=== PATIENT | male | born 1995 | race Two or more races ===

== ENCOUNTER 2024-04-02 16:17 | Emergency (ER) | payer BC, SELFPAY ==
[2024-04-02 16:20] VITALS: BMI 28.5
--- NOTE | 2024-04-02 16:26 | EKG_ITS ---
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
--- NOTE | 2024-04-02 17:12 | EDNOTE_ITS ---
Upper Respiratory Inf. RME/HPI General Chief Complaint: Flu Like Symptoms Stated Complaint: COUGH, BODYACHE, CHILLS, LIGHT HEADDED Time Seen by Provider: 04/02/24 16:50 Arrival date/time: 04/02/24 16:17 29-year-old male reports with complaints of a syncopal episode. Patient has had fevers chills body aches since this morning. Patient states that he stood from a seated position got dizzy and passed out. The syncopal episode was unwitnessed he believes that he was out for approximately 8 minutes. He denies shortness of breath chest pain nausea or vomiting abdominal pain or head injury Limitations: no limitations Related Data Allergies Allergy/AdvReac Type Severity Reaction Status Date / Time Penicillins Allergy Verified 04/02/24 16:25 Review of Systems Constitutional Constitutional: Reports chills, Reports fatigue, Reports fever(s), Denies headache(s) and Reports malaise ENT Ears, Nose, Mouth, and Throat: Reports dizziness, Denies headache(s), Denies sore throat and Reports vertigo Cardiovascular Cardiovascular: Denies chest pain at rest, Denies dyspnea and Reports syncope Respiratory Respiratory: Reports cough and Denies dyspnea Gastrointestinal Gastrointestinal: Denies nausea and Denies vomiting Musculoskeletal Musculoskeletal: Denies back pain and Reports myalgias Integumentary/Breasts Skin/Breast: Denies erythema and Denies rash Neurologic Neurologic: Denies confusion, Denies convulsions, Reports dizziness, Denies localized weakness, Denies headache(s), Reports syncope and Reports vertigo Psychiatric Psychiatric: Denies confusion and Denies depression Endocrine Endocrine: Reports fatigue Hematologic/Lymphatic Hematologic/Lymphatic: Denies easy bleeding and Denies easy bruising Past Medical History Social History SMOKING STATUS: Former smoker ED Exam General Limitations: Present no limitations General appearance: Present alert and in no apparent distress Head Head exam: Present atraumatic Eye Eye exam: Present normal appearance, PERRL and EOMI ENT ENT exam: Present normal exam, normal oropharynx and mucous membranes moist Neck Neck exam: Present normal inspection, full ROM and trachea midline Chest Chest inspection: Present normal inspection and symmetric chest wall rise Respiratory Respiratory exam: Present normal lung sounds bilaterally Cardiovascular Cardiovascular exam: Present regular rate, normal rhythm and normal heart sounds Abdominal Exam Abdominal exam: Present soft and normal bowel sounds Extremities Exam Extremities exam: Present normal inspection and full ROM Back Exam Back exam: Present normal inspection and full ROM Neurological Exam Neurological exam: Present alert, oriented X3 and CN II-XII intact Psychiatric Psychiatric exam: Present normal affect and normal mood Skin Skin exam: Present warm, dry, intact and normal color Course Quality Measures none Orders Category Date Time Status Bedside COVID-19 Antigen Test NOW Care 04/02/24 17:12 Ordered Bedside Influenza A&B Antigen Test NOW Care 04/02/24 17:12 Ordered EKG (ED ONLY) *Do not use* NOW Care 04/02/24 16:26 Completed EKG (ED Only) Stat Exams 04/02/24 16:26 Draft Upper Respiratory Infection Patient data External records reviewed:: None Clinical information provided by:: patient Social determinants that could affect healthcare access:: none Patient has the following chronic illnesses:: none How is presenting disease/condition affected by chronic disease/condition?: no chronic disease Evaluation data The following diagnostics were reviewed and interpreted by me:: lab results Lab and/or radiology exams considered but not ordered:: none Interpretation Summary: Negative for COVID positive flu Medications / Prescriptions Medications or Prescriptions considered but not ordered:: None Medication administrations:: None Consultations Consultation(s) initiated? (list below): No Diagnosis Upper Respiratory Differential Diagnosis: upper respiratory infection, viral infection and influenza Most likely diagnosis given after review of the tests above:: Influenza Admission Indicated Admission indicated?: not indicated Admission Request Was there a request for admission?: Yes Admission Attestation Admission request attestation: Discussed case with [] from Hospitalist service regarding admission. Discussed patients ED course, exam findings, labs, and radiology results. The Hospitalist [agrees,declines] to accept the patient for admission. Disposition Plan Disposition Plan: Discharge Discharge Attestation Discharge Attestation: The patient and all family members were given an opportunity to ask questions and understood the discharge instructions. Discharge instructions specifically effects, indications for sooner follow up or return to the emergency department, and the expected course of current diagnosis. Patient condition: Stable Discharge Plan Plan Patient Disposition: HOME (Self Care) Problem List Clinical Impression: Influenza Patient/Caregiver Discharge Instructions Discharge Activity: activity as tolerated Education Materials: ED Influenza (Adult) Additional Instructions: Your lab test were positive for the flu take medications as directed, hydrate well, get plenty of rest and follow up with PCP if you are not better in 5 days. The cough associated with the flu virus can sometimes last for several weeks after all other symptoms have gone, take OTC cough medication as needed for your cough Print Language: Egyptian Stand Alone Forms: [place] Award Info., Work/School Release, Patient Portal Info Letter
[2024-04-02 17:43] VITALS: BP 107/70; PULSE 101; RESP 20; TEMP 38.9
== END 2024-04-02 17:47 | disposition home or self-care (01) ==
PROVIDERS: Emergency Provider Emergency Medicine; PCP Family Medicine
DX: J11.1 Influenza due to unidentified influenza virus with other respiratory manifestations (principal); R55 Syncope and collapse
CPT/HCPCS: 87400; 87811; 93005; 99283

== ENCOUNTER 2024-12-18 15:27 | Emergency (ER) | payer BC, SELFPAY ==
[2024-12-18 15:28] VITALS: BMI 26.4
[2024-12-18 16:04] VITALS: BP 128/81; PULSE 93; RESP 16; TEMP 37.2; O2SAT 98
--- NOTE | 2024-12-18 16:21 | EDNOTE_ITS ---
<Statement entered by Zoya Pope MD - 12/19/24 14:05> As co-signing physician, I was present and available for consult prn. I concur with the plan and care as documented by the midlevel provider. ED Dental RME/HPI General Chief complaint: Dental/Oral/Throat Stated complaint: SORE THROAT, DRY COUGH, RED EYES Time Seen by Provider: 12/18/24 16:00 Source: patient Arrival date/time: 12/18/24 15:27 29-year-old male with no known medical history presents to the emergency room with a chief complaint of a sore throat and a dry cough x 2 days Mode of arrival: ambulatory Limitations: no limitations Related Data Allergies Allergy/AdvReac Type Severity Reaction Status Date / Time Penicillins Allergy Verified 12/18/24 15:31 Review of Systems Review of Systems Systems Reviewed: All systems reviewed, normal except as documented Constitutional Constitutional: Reports system reviewed and no additional complaints, except as documented, Reports chills, Denies fatigue, Denies fever(s), Reports headache(s) and Reports weakness Eyes Eyes: Reports system reviewed and no additional complaints, except as documented, Denies blurry vision and Denies change in vision ENT Ears, Nose, Mouth, and Throat: Reports system reviewed and no additional complaints, except as documented, Denies otalgia, Reports headache(s), Denies nasal congestion, Reports sore throat, Denies throat swelling and Denies vertigo Cardiovascular Cardiovascular: Reports system reviewed and no additional complaints, except as documented, Denies chest pain, Denies dyspnea and Denies dyspnea on exertion Respiratory Respiratory: Reports system reviewed and no additional complaints, except as documented, Denies chest congestion, Denies cough, Denies dyspnea, Denies dyspnea on exertion and Denies wheezing Gastrointestinal Gastrointestinal: Reports system reviewed and no additional complaints, except as documented, Denies abdominal pain, Denies cramping, Denies nausea and Denies vomiting Genitourinary Genitourinary: Reports system reviewed and no additional complaints, except as documented, Denies dysuria and Denies hematuria Musculoskeletal Musculoskeletal: Reports system reviewed and no additional complaints, except as documented and Denies back pain Integumentary/Breasts Skin/Breast: Reports system reviewed and no additional complaints, except as documented and Denies wounds Neurologic Neurologic: Reports system reviewed and no additional complaints, except as documented, Denies confusion, Reports headache(s), Denies lack of coordination, Denies vertigo and Reports weakness Psychiatric Psychiatric: Reports system reviewed and no additional complaints, except as documented, Denies anxiety, Denies confusion, Denies depression, Denies paran oia, Denies suicidal ideation and Denies tactile hallucinations Endocrine Endocrine: Reports system reviewed and no additional complaints, except as do cumented and Denies fatigue Hematologic/Lymphatic Hematologic/Lymphatic: Reports system reviewed and no additional complaints, except as documented and Denies lymphadenopathy Allergic/Immunologic Allergic/Immunologic: Reports system reviewed and no additional complaints, except as documented, Denies throat swelling, Denies urticaria and Denies wheezing Past Medical History Social History SMOKING STATUS: Never smoker ED Exam General Limitations: Present no limitations General appearance: Present alert and in no apparent distress Head Head exam: Present atraumatic Eye Eye exam: Present normal appearance, PERRL and EOMI ENT ENT exam: Present normal exam, normal oropharynx and mucous membranes moist Neck Neck exam: Present normal inspection, full ROM and trachea midline Chest Chest inspection: Present normal inspection and symmetric chest wall rise Respiratory Respiratory exam: Present normal lung sounds bilaterally; Absent respiratory distress, wheezes, stridor, accessory muscle use or prolonged expiratory phase Cardiovascular Cardiovascular exam: Present regular rate, normal rhythm and normal heart sounds; Absent tachycardia Abdominal Exam Abdominal exam: Present soft and normal bowel sounds Extremities Exam Extremities exam: Present normal inspection and full ROM Back Exam Back exam: Present normal inspection and full ROM Neurological Exam Neurological exam: Present alert, oriented X3 and CN II-XII intact Psychiatric Psychiatric exam: Present normal affect and normal mood Skin Skin exam: Present warm, dry, intact and normal color Course Quality Measures none Orders Category Date Time Status Bedside COVID-19 Antigen Test NOW Care 12/18/24 16:05 Active Strep A Rapid Stat Lab 12/18/24 15:47 Completed Vital Signs Vital signs: Vital Signs Temperature 98.9 F 12/18/24 16:04 Pulse Rate 93 12/18/24 16:04 Respiratory Rate 16 12/18/24 16:04 Blood Pressure 128/81 12/18/24 16:04 Pulse Oximetry (%) 98 12/18/24 16:04 Oxygen Delivery Method Room Air 12/18/24 16:04 Dental / Oral MDM Narrative MDM Narrative:: 29-year-old male with no known medical history presents to the emergency room with a chief complaint of a sore throat and a dry cough x 2 days Patient is hemodynamically stable and in no apparent distress Physical examination shows erythema to the posterior pharynx there are no exudates Strep test was negative Patient was discharged and educated to follow-up with primary care provider in the next 24 to 48 hours and return to the emergency room for any evidence of worsening signs or symptoms Patient data External records reviewed:: [facility] previous records Clinical information provided by:: patient Social determinants that could affect healthcare access:: none Patient has the following chronic illnesses:: No chronic illness How is presenting disease/condition affected by chronic disease/condition?: no chronic disease Evaluation data The following diagnostics were reviewed and interpreted by me:: lab results and radiology exam(s) Lab and/or radiology exams considered but not ordered:: Labs and radiology exams considered and ordered Interpretation Summary: N/A Medications / Prescriptions Medications or Prescriptions considered but not ordered:: No medication given Medication administrations:: No medication given Consultations Consultation(s) initiated? (list below): No Diagnosis Dental Differential Diagnosis: other (Sore throat/pharyngitis) Most likely diagnosis given after review of the tests above:: Sore throat Admission Indicated Admission indicated?: not indicated Admission Request Was there a request for admission?: No Disposition Plan Disposition Plan: Discharge Discharge Attestation Discharge Attestation: The patient and all family members were given an opportunity to ask questions and understood the discharge instructions. Discharge instructions specifically effects, indications for sooner follow up or return to the emergency department, and the expected course of current diagnosis. Patient condition: Stable Discharge Plan Plan Patient Disposition: HOME (Self Care) Discharge Disposition comment: Stable Prescriptions/Referrals Referrals: No Primary/Family,Physician [Primary Care Provider] - In 1 week Problem List Clinical Impression: Acute sore throat Patient/Caregiver Discharge Instructions Education Materials: When You Have a Sore Throat, Self-Care for Sore Throats Additional Instructions: Please follow-up with your primary care provider in the next 24 to 48 hours Your strep test was negative for any acute findings For any evidence of worsening signs or symptoms return to emergency room immediately Print Language: Cook Islander Stand Alone Forms: [place] Award Info., Work/School Release, Patient Portal Info Letter MICHAELLE/CY Supervising Physician MICHAELLE/CY Supervising Physician: Dr. POPE
[2024-12-18 16:47] LABS: Strep A Rapid Negative (Negative)
[2024-12-18 17:40] VITALS: BP 124/78; PULSE 85; RESP 16; TEMP 36.7; O2SAT 96
== END 2024-12-18 17:44 | disposition home or self-care (01) ==
PROVIDERS: Emergency Provider Nurse Practitioner Family
DX: J02.9 Acute pharyngitis, unspecified (principal)
CPT/HCPCS: 87502; 87651; 87811; 99281